=== PATIENT | female | born 1990 | race Caucasian/White ===

== ENCOUNTER 2022-07-27 11:02 | Outpatient (RCR) | payer MEDICAID, SELFPAY ==
--- NOTE | 2022-07-28 10:24 | HP.OTFCE_ITS ---
Floor (Occasional 1-33% of Day): 30# Floor (Frequent 34-66% of Day): 15# Floor (Constant 67-100% of Day): NA Floor PDL: Light Knee (Occasional 1-33% of Day): 30# Knee (Frequent 34-66% of Day): 15# Knee (Constant 67-100% of Day): NA Knee PDL: Light Waist (Occasional 1-33% of Day): 30# Waist (Frequent 34-66% of Day): 15# Waist (Constant 67-100% of Day): NA Waist PDL: Light Shoulder (Occasional 1-33% of Day): 15# Shoulder (Frequent 34-66% of Day): NA Shoulder (Constant 67-100% of Day): NA Shoulder PDL: Sedentary-Light Overhead (Occasional 1-33% of Day): 10# Overhead (Frequent 34-66% of Day): NA Overhead (Constant 67-100% of Day): NA Overhead PDL: Sedentary Comments: LIGHT PHYSICAL DEMAND LEVEL FOR LIFTING AT Floor/knee and waist levels. SEDENTARY- LIGHT PHYSICAL DEMAND LEVEL FOR LIFTING AT Shoulder level. SEDENTARY PHYSICAL DEMAND LEVEL FOR LIFTING AT overhead levels Bending: Frequent Ability (34-66% of day) Squatting: Frequent Ability (34-66% of day) Comments: with external support Kneeling: Occasional Ability (1-33% of day) Comments: with external support Reaching out: Frequent Ability (34-66% of day) Comments: performed while sitting Reaching up: Frequent Ability (34-66% of day) Comments: performed while sitting Sitting: Frequent Ability (34-66% of day) Walking: Frequent Ability (34-66% of day) Standing: Frequent Ability (34-66% of day) Duration Sedentary Sedentary Light Light Light Medium Medium Medium Heavy Very Heavy Heavy Occasional (0-33% of day) Frequent (34-66% of day) Constant (67-100% of day) 10 # Negligible Negligible 15 # 8 # Negligible 20 # 10# Negli. 35 # 18 # 7 # 50 # 25 # 10 # 75 # 100 # >100 # 38 # 50 # >50 # 15 # 20 # >20 # Weight:: 53.524 kg Hand Dominance: right Medical History Including Restrictions: Pt states she was in good health and very active with working and taking care of her three children. 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 Pt states she went to hospital ( Mid. 2021) unsure how she got there and then due to detox suffered the inability to walk or care for herself. pt states she had swelling on her brain. Pt states [facility]. Pt states Physical therapy went well she was there for about two months. States she was released in 2022. Pt states she did have home health physical therapy at the home and now does a home exercise program. (sometimes) pt states she is feeling back to herself but has some side affects from withdraw ( painful feet and hands). pt is on some medicine but mostly vitamins. pt states she feels she has not returned to her PLOF after the above feel she has low endurance and weakness. pt states she has nuro apt next month and has two tests he wants done. Pt could not remember what test. Diagnoses: Alcoholic cirrhosis of the liver without Ascites. pt denies other dx. Symptoms: States fingers and toe tingling. Low endurance. fatigue. weakness. SOB. Memory Pain: denies. states in hands and feet sometimes Work History: Pt states the last time she worked was for a [employer] probably 3 years ago or more. pt states she ended up quitting this position as its when Covid 19 first hit. At this time pt has not applied for a job. pt states she asked her DrDinorah when she can start applying for jobs and this is what he sent her her for FCE. pt states she applied for disability two months ago and has not heard back from social security disability. Behavioral: pt demo with flat affect throughout session. pt cooperative and put good effort towards request of activity. pt quit and was unable to remember some details of her health/work history ADLS: Pt lives alone in apt. in two story apt. with 20 entry steps with railing ( pts states family assist with financial needs) pt states she does not drive and will have her mom or family help her with shopping for groceries. pt states laundry in in her apt. and she can do laundry IND. pt states she does cook sometimes or her mom will bring meals over. pt states she is ind. with bathing and dressing. pt three children [facility] she [facility] into hospital for detox. pt appears motivated to get her children back. Physical Examination: pt arrives to session- finger nails unkept and therapist noted deteriorating teeth-. clothing clean. pt demo flat affect ROM: pt demo ROM WNL Strength: pitFit 2 peak force in pounds. right shoulder flexion 7.4# left 5.9#. right shoulder extension 8.5# left 9.5#. right Biceps 13.6# left 13.2#. right triceps 14.3# left 11.4#. right hip flexion 15# left 21#. 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 resting heart rate 95. 115 highest heart rate Sensation: [place] Monofilament sensory testing. right digits 3.22 left 3.22 interpretation diminished light touch Fine Motor: 9-hole peg testing. right 24.14 = 0% for her age. left 24 sec. = 10% for her age Balance: 10 functional reach test. Interpretation: A score of 6 or less indicates a significant. increased risk for falls. A score between 6-10 inch. no noted LOB during assessment Bending: pt completed bending forward 3/3x, 10/10x and 10/10 rapidly. 105 HR after 10/10x and heart rate after 10/10x rapidly 70. pt can bend forward on frequent ability Squatting: Pt demo the ability to squat 3/3x, 10/10x and 10/10 rapidly with external support for last 10. pt states knees feel weak. pt can squat on frequent ability with use of external support Kneeling: pt demo the ability to kneel 3/3x and 10/10x use of external supports pt declined 10/10 x rapidly. fatigue pts legs, thighs burning. pt can kneel on occasional ability with external support Reaching out/up: reach up sitting 3/3x 10/10x and 10/10 rapidly. reach out 3/3x, 10/10x and 10/10 rapidly. pt can reach up/out on frequent ability Walking: pt ambulated 16 min with good reciprocal gait pattern - pt can ambulate on frequent ability Standing: pt demo the ability to stand for 6 min shifting body wt. pt can stand on frequent ability Sitting: pt demo the ability to sit for 45 min with no expressed or apparent discomfort. pt can sit on frequent ability. Climbing Stairs: pt ascended 10 steps with a right leg step pattern half way and than switched to left leg step and use of railing. Descending pt did right leg single step pattern with use of railing. Floor Lift: pt demo the ability to lift 15# (+15#box) for maximal lift at 30# from floor level with fair lifting mechanics. Knee Lift: pt demo the ability to lift 15# and (+15 Box) for maximal lift at 30# from knee level with fair lifting mechanics. Waist Lift: pt demo the ability to lift 15# (+15 Box) or maximally lift at 30# from waist level with fair lifting mechanics. Shoulder Lift: pt demo the ability to lift 15# maximally from shoulder level with fair lifting mechanics. Overhead Lift: pt demo the ability to lift 10# maximally from this level with fair lift mechanics. Carryin# for 40 feet with good ability. Comments: pt demo with deconditioned / generalized weakness grossly throughout but put good effort into participating. Pt did not c/o pain or tingling with tasks.
--- NOTE | 2022-07-28 10:24 | HP.OTFCE.D ---
FCE D/C Summary - Discharge PALAK KOEHLER was seen for a one time visit for an FCE on 07/27/22 and is discharged.
== END 2022-07-27 19:00 | disposition home or self-care (01) ==
LOC: OT 11:02
PROVIDERS: PCP Internal Medicine; Referring Provider Internal Medicine; Visit Provider Internal Medicine
DX: K70.30 Alcoholic cirrhosis of liver without ascites (principal)
CPT/HCPCS: 97750